=== PATIENT | female | born 1975 | race Caucasian/White ===

== ENCOUNTER 2022-08-09 14:56 | Outpatient (CLI) | payer OTHER ==
[~2022-08-09 14:56] MED LIST: PRENATAL1 TAB; PREVACID30 MG; TIGAN300 MG
== END 2022-08-09 15:04 | disposition home or self-care (01) ==
LOC: LAB 14:56
PROVIDERS: ATTEND Obstetrics & Gynecology
DX: Z03.818 Encounter for observation for suspected exposure to other biological agents ruled out (principal); Z20.828 Contact with and (suspected) exposure to other viral communicable diseases; E03.9 Hypothyroidism, unspecified; N39.0 Urinary tract infection, site not specified

== ENCOUNTER 2022-08-12 05:33 | Day surgery (SDC) | payer OTHER | END 2022-08-12 17:05 | disposition home or self-care (01) | LOC: CIR.AMB 05:33 | PROVIDERS: ATTEND Obstetrics & Gynecology | DX: N85.02 Endometrial intraepithelial neoplasia [EIN] (principal); D25.0 Submucous leiomyoma of uterus; R87.613 High grade squamous intraepithelial lesion on cytologic smear of cervix (HGSIL); Z20.822 Contact with and (suspected) exposure to COVID-19 ==